=== PATIENT | male | born 1985 | race Caucasian/White ===

== ENCOUNTER 2019-07-19 16:57 | Observation (INO) | payer OTHER, SELFPAY ==
[2019-07-19] VITALS (9 sets, daily range): BP systolic 144–175; BP diastolic 81–126; PULSE 67–82; RESP 14–22; TEMP 36.6; O2SAT 95–98; BMI 38.0
--- NOTE | 2019-07-19 17:14 | ED_ITS ---
Entered by Angy Myers, acting as scribe for Chris Rivera MD, [facility] HPI - Chest Pain General: Chief Complaint: Chest Pain Stated Complaint: weakness after chest pain/SOB Time Seen by Provider: 07/19/19 17:14 Source: patient and RN notes reviewed Mode of arrival: ambulatory Limitations: no limitations History of Present Illness: HPI narrative: 34 yo male presents to ED with complaints of chest pain and shortness of breath. He states he had been cutting wood and when he began stacking the wood he began having R sided chest pain, shortness of breath, sweating and dizziness. This occurred at approximately 1600 today. He tried drinking water and sat down to catch his breath but the shortness of breath did not go away. He said the chest pain lasted about 15 minutes and the pain was minimal. He has no risk factors, only high blood pressure and no family history. The pain is now resolved but he said it feels like something is tickling in his chest and he feels worn out. He did chew a regular strength aspirin prior to arrival. MD complaint: chest pain Pertinent past history: other (HTN) Onset (ago): hour(s) (1.5 (1600)) Timing of current episode: episodic and now resolved Prior episodes: No Onset: during exertion (cutting and stacking wood) Pain location: right chest Pain radiation: none Severity: mild Quality: sharp Relieving factors: rest and other (aspirin) Exacerbating factors: exertion Context: other (exertion) Associated symptoms: Reports dyspnea; Deny abdominal pain, fever(s), nausea, palpitations or vomiting Treatment prior to arrival: aspirin Risk Factors: Coronary artery disease risk factors: none Thoracic aortic dissection risk factors: none Review of Systems General: Reports: 10 or more systems reviewed and unremarkable except in HPI and below Const: Denies: fever, chills or body aches Eyes: Reports: blind spots; Denies: change in vision or blurry vision ENMT: Denies: throat pain, enlarged tonsils, painful swallowing, hoarseness, mouth pain or swelling of lips/tongue Card: Reports: chest pain; Denies: palpitations, irregular heart rhythm, edema or swelling of feet/ankles Resp: Reports: shortness of breath GI: Denies: abdominal pain, nausea or vomiting : Denies: flank pain, painful urination, urinary frequency, urinary urgency or urinary hesitancy Musc: Denies: neck pain, back pain or extremity swelling Skin/Breast: Denies: rash, itching or redness Neuro: Denies: headache, numbness in extremities or weakness in extremities Endo: Denies: excessive urination, excessive thirst or tired all the time PFS ED PFSH: Medical History (Updated 07/19/19 @ 20:25 by Chris Rivera MD, [facility]) Hypertension Social History Smoking and tobacco status: current every day smoker Physical Exam Const: COMMON NORMALS: no apparent distress, average body habitus, oriented x3, no limitations, healthy appearing, alert and well nourished HENMT: COMMON NORMALS: normocephalic, head/scalp atraumatic and moist oral mucous membranes HEAD & SCALP: normocephalic and atraumatic Eye: COMMON NORMALS: PERRL, EOMs intact bilaterally, conjunctivae normal and no scleral icterus CONJUNCTIVA: Yes conjunctivae normal PUPIL: Yes PERRL Neck/C-Spine: COMMON NORMALS: full ROM, supple, no meningeal signs, no JVD and no carotid bruits Chest: COMMONS NORMALS: inspection of chest normal and palpation of chest normal Resp: COMMON NORMALS: normal respiratory effort, no retractions, no use of accessory muscles, clear to auscultation bilaterally and percussion normal AUSCULTATION: clear to auscultation bilaterally PERCUSSION: percussion normal Cardio: COMMON NORMALS: no JVD, regular rate, regular rhythm, S1 normal heart sound, S2 normal heart sound, no gallops, no clicks, no murmurs, no rub and peripheral pulses 2+ throughout RATE: regular rate RHYTHM: regular rhythm HEART SOUNDS: S1 normal and S2 normal PERIPHERAL PULSES: pulses 2+ throughout GI: COMMON NORMALS: normal to inspection, nondistended, normoactive bowel sounds, soft to palpation, non-tender, no hepatosplenomegaly, no masses and no bruits PALPATION: Yes soft and Yes no hepatosplenomegaly : COMMON NORMALS: Yes no CVA tenderness BLADDER/KIDNEY EXAM: Yes no CVA tenderness Back/Pelvis: COMMON NORMALS: no CVA tenderness Extremity: COMMON NORMALS: normal to inspection, full ROM, normal capillary refill, no calf tenderness and no pedal edema Neuro: COMMON NORMALS: oriented x3 SENSORIUM/ORIENTATION: Yes alert MENINGEAL SIGNS: Yes no meningeal signs Skin: COMMON NORMALS: no rashes or lesions noted, no wounds, skin turgor normal, no jaundice, no petechiae and no mottling GENERAL SKIN EXAM: no rashes or lesions noted and turgor normal Course Reevaluation(s): Reevaluation #1: Discussed his lab and imaging findings with him. Negative troponin x2. Negative CTA. I think he may have just pulled a muscle in his chest when cutting wood. We will discharge him home with no new orders. He voiced understanding and is in agreement with the plan Time: 20:20 Vital Signs: Vital signs: Vital Signs Temperature 98 F 07/19/19 17:04 Pulse Rate 82 07/19/19 19:49 Respiratory Rate 16 07/19/19 19:49 Blood Pressure 151/99 07/19/19 19:49 Pulse Oximetry 95 07/19/19 19:49 MDM - Chest Pain MDM Narrative: Medical decision making narrative: Patient who presented to the emergency department with complaints of chest pain after cutting wood all day. He had negative troponin x2. D-dimer was elevated but CTA negative. He is discharged home with no new orders. He is to follow-up with his primary care provider within 3 days. Medical Records: Attestation: I reviewed the patient's medical records. Lab Data: Attestation: I reviewed the patient's lab results. Labs: Lab Results 07/19/19 07/19/19 07/19/19 Range/Units 17:32 17:32 17:32 WBC 7.7 (4.0-10.0) 10^3/ uL RBC 5.06 (4.1-5.3) 10^6/u L Hgb 15.5 (11.7-16.6) g/dL Hct 45.3 (42.0-52.0) % MCV 89.5 (80-94) fL MCH 30.6 (28.0-34.0) pg MCHC 34.2 (30.0-36.0) g/dL RDW 11.6 L (12.1-15.1) % Plt Count 297 (130-400) 10^3/c mm MPV 8.8 (7.4-10.4) fL Neut % (Auto) 67.9 % Lymph % (Auto) 19.8 % [place] % (Auto) 9.8 % Eos % (Auto) 1.6 % Baso % (Auto) 0.6 % Neut # (Auto) 5.2 (1.8-7.7) 10^3/u L Lymph # (Auto) 1.5 (0.8-4.8) 10^3/u L [place] # (Auto) 0.8 (0.2-0.9) 10^3/u L Eos # (Auto) 0.1 (0.0-0.8) 10^3/u L Baso # (Auto) 0.1 (0.0-0.1) 10^3/u L Nucleated RBC % (a uto) 0 % Nucleated RBCs # 0.0 /100WBC PT 12.50 (10.5-13.3) SECO NDS INR 0.90 (0.8-1.2) D-Dimer 1.61 H (0-0.59) ug/mIFE U Sodium 137 (136-145) mmol/L Potassium 3.8 (3.5-5.1) mmol/L Chloride 100 (98-107) mmol/L Carbon Dioxide 22 (22-29) mmol/L Anion Gap 18.8 (5-19) BUN 15 (6-20) mg/dL Creatinine 0.7 (0.7-1.2) mg/dL GFR Calculation 129.9 (90-130) mL/min Glucose 103 (65-115) mg/dL Calcium 9.5 (8.5-10.5) mg/dL Total Bilirubin 0.2 (0.15-1.2) mg/dL AST 24 (0-40) U/L ALT 31 (0-41) U/L Alkaline Phosphata se 59 (40-130) IU/L Creatine Kinase 88 (39-308) U/L Troponin T Baselin e (0-15) ng/mL Troponin T 120 Min [place] (0-15) ng/mL Delta Troponin T (0-10) ABS# Total Protein 8.0 (6.6-8.7) g/dL Albumin 4.9 (3.5-5.2) g/dL Globulin 3.1 (1.3-4.6) g/dL 02/16/20 02/16/20 Range/Units 17:32 19:31 WBC (4.0-10.0) 10^3/ uL RBC (4.1-5.3) 10^6/u L Hgb (11.7-16.6) g/dL Hct (42.0-52.0) % MCV (80-94) fL MCH (28.0-34.0) pg MCHC (30.0-36.0) g/dL RDW (12.1-15.1) % Plt Count (130-400) 10^3/c mm MPV (7.4-10.4) fL Neut % (Auto) % Lymph % (Auto) % [place] % (Auto) % Eos % (Auto) % Baso % (Auto) % Neut # (Auto) (1.8-7.7) 10^3/u L Lymph # (Auto) (0.8-4.8) 10^3/u L [place] # (Auto) (0.2-0.9) 10^3/u L Eos # (Auto) (0.0-0.8) 10^3/u L Baso # (Auto) (0.0-0.1) 10^3/u L Nucleated RBC % (a uto) % Nucleated RBCs # /100WBC PT (10.5-13.3) SECO NDS INR (0.8-1.2) D-Dimer (0-0.59) ug/mIFE U Sodium (136-145) mmol/L Potassium (3.5-5.1) mmol/L Chloride (98-107) mmol/L Carbon Dioxide (22-29) mmol/L Anion Gap (5-19) BUN (6-20) mg/dL Creatinine (0.7-1.2) mg/dL GFR Calculation (90-130) mL/min Glucose (65-115) mg/dL Calcium (8.5-10.5) mg/dL Total Bilirubin (0.15-1.2) mg/dL AST (0-40) U/L ALT (0-41) U/L Alkaline Phosphata se (40-130) IU/L Creatine Kinase (39-308) U/L Troponin T Baselin e 6 (0-15) ng/mL Troponin T 120 Min [place] 6.00 (0-15) ng/mL Delta Troponin T 0 (0-10) ABS# Total Protein (6.6-8.7) g/dL Albumin (3.5-5.2) g/dL Globulin (1.3-4.6) g/dL EKG Data^: EKG 1: Computer generated interpretation: [address] [address] Electrocardiograph Report Draft Patient: Juan Royal #: [id number] : 1985Acct#:[id number] Age/Sex: 34 / MADM Date: 07/19/19 Loc: ERRoom/Bed: Attending Dr: Ordering Provider/Ordering MD: Chris Rivera MD, [facility] Date of Service: 07/19/19 Procedure(s): ECG 12 lead EKG Accession Number(s): [id number] Report Number: [id number] Rate: 76 P: 9 OR: 150 QRS: -24 QRSD: 106 T: -13 QT: 330 QTc: 371 SINUS RHYTHM INCOMPLETE RIGHT BUNDLE BRANCH BLOCK [90+ ms QRS DURATION, TERMINAL R IN V1/V2, 40+ 40+ 40+ 40+ 40+ 40+ ms S IN I/aVL/V4/V5/V6] POSSIBLE ANTERIOR MYOCARDIAL INFARCTION [30 ms Q WAVE IN V3/V4, OR R < 0.2 mV IN V4] IN V4] V4] V4], OF INDETERMINATE AGE INFERIOR MYOCARDIAL INFARCTION [40+ ms Q WAVE AND/OR ST/T ABNORMALITY IN II/a II/aVF], OR OR PROBABLY OLD No previous ECG available for comparison [email or web address] [id number] Dictated By:INTERFACE,USER Signed By:Signed Date/Time: DD/ 01 EKG 2: Attestation: I personally reviewed and interpreted this EKG as follows: EKG interpretation date: 07/19/19 EKG interpretation time: 19:19 Prior EKG tracings: available for review Interpretation: No changes from earlier today. Discharge Plan Discharge Patient Disposition: Home, Self-Care Clinical Impression: Chest pain Qualifiers: Chest pain type: other chest pain Qualified Code(s): R07.89 - Other chest pain Condition: Stable Prescriptions: Continued Coreg 25 mg Tablet 25 mg PO BID RF: 0 losartan-hydrochlorothiazide 100-12.5 mg Tablet 1 tab PO DAILY RF: 0 Multiple Vitamins Tablet 1 tab PO DAILY RF: 0 Discharge Orders: Discharge Order (Routine); Ordered 07/19/19 Ordered By: Chris Rivera Referrals: Gayla Preciado FNP [Primary Care Provider] - 1-3 days Patient Instructions: Chest Pain (ED) Activity Restrictions/Additional Instructions: Return for any new or worsening symptoms. Follow-up with your primary care provider within 3 days. Continue home medications as prescribed. Coding Level of Care Code ED Bundle Clerk for Chg Fwd Exam Comprehensive The documentation recorded by the Louis delong Valerie R, accurately reflects the service I personally performed and the decisions made by Miguel greenwood Adegoke I, MD, [facility] Jul 19, 2019 16:57
--- NOTE | 2019-07-19 17:28 | ECG_ITS ---
Measurements Intervals [place] Rate: 76 P: 9 NV: 150 QRS: -24 QRSD: 106 T: -13 QT: 330 QTc: 371 SINUS RHYTHM INCOMPLETE RIGHT BUNDLE BRANCH BLOCK [90+ ms QRS DURATION, TERMINAL R IN V1/V2, 40+ ms S IN I/aVL/V4/V5/V6] POSSIBLE ANTERIOR MYOCARDIAL INFARCTION [30 ms Q WAVE IN V3/V4, OR R < 0.2 mV IN V4], OF INDETERMINATE AGE INFERIOR MYOCARDIAL INFARCTION [40+ ms Q WAVE AND/OR ST/T ABNORMALITY IN II/a II/aVF], PROBABLY OLD No previous ECG available for comparison Electronically Signed On 07-20-2019 11:16:33 [employer] by Simon Chance M.D. [id number]
--- NOTE | 2019-07-19 17:29 | XR_ITS ---
WS: [id number] XR chest 2V* [id number] REASON FOR EXAM: chest pain FINDINGS: The cardiac silhouette is unremarkable. There is granulomas seen in both perihilar areas. The lung braun are well aerated. No pneumonia, pleural effusion, pulmonary edema, no pneumothorax. No osseous abnormalities. The hilum and apices are normal. XR/XR chest 2V* 29708 IMPRESSION: No active cardiopulmonary changes.
[2019-07-19 17:45] LABS: Basophils # 0.1 10^3/uL (0.0-0.1); Basophils % 0.6 %; Eosinophils # 0.1 10^3/uL (0.0-0.8); Eosinophils % 1.6 %; Hematocrit 45.3 % (42.0-52.0); Hemoglobin 15.5 g/dL (11.7-16.6); Lymphocytes # 1.5 10^3/uL (0.8-4.8); Lymphocytes % 19.8 %; Mean Corpuscular HGB Conc 34.2 g/dL (30.0-36.0); Mean Corpuscular Hemoglobin 30.6 pg (28.0-34.0); Mean Corpuscular Volume 89.5 fL (80-94); Mean Platelet Volume 8.8 fL (7.4-10.4); Monocytes # 0.8 10^3/uL (0.2-0.9); Monocytes % 9.8 %; Neutrophils # 5.2 10^3/uL (1.8-7.7); Neutrophils % 67.9 %; Nucleated Red Blood Cells % 0 %; Platelet Count 297 10^3/cmm (130-400); Red Blood Count 5.06 10^6/uL (4.1-5.3); Red Cell Distribution Width 11.6 % (12.1-15.1); White Blood Count 7.7 10^3/uL (4.0-10.0)
[2019-07-19 17:57] LABS: D Dimer 1.61 ug/mIFEU (0-0.59)
[2019-07-19 18:01] LABS: Alanine Aminotransferase 31 U/L (0-41); Albumin Level 4.9 g/dL (3.5-5.2); Alkaline Phosphatase 59 IU/L (40-130); Anion Gap 18.8 (5-19); Aspartate Amino Transferase 24 U/L (0-40); Blood Urea Nitrogen 15 mg/dL (6-20); Calcium 9.5 mg/dL (8.5-10.5); Carbon Dioxide 22 mmol/L (22-29); Chloride 100 mmol/L (98-107); Creatine Phosphokinase 88 U/L (39-308); Globulin 3.1 g/dL (1.3-4.6); Glomerular Filtration Rate 129.9 mL/min (90-130); Glucose 103 mg/dL (65-115); Potassium 3.8 mmol/L (3.5-5.1); Sodium 137 mmol/L (136-145); Total Bilirubin 0.2 mg/dL (0.15-1.2)
[2019-07-19 18:03] LABS: Troponin(5th) Baseline 6 ng/mL (0-15)
--- NOTE | 2019-07-19 18:28 | CTR_ITS ---
PROCEDURE INFORMATION: Exam: CT Angiography Chest With Contrast Exam date and time: 07/19/2019 6:32 PM Age: 34 years old Clinical indication: Shortness of breath and other: Elevated ddimer; Additional info: Chest pain, SOB, elevated d-dimer TECHNIQUE: Imaging protocol: Computed tomographic angiography of the chest with intravenous contrast. 3D rendering: MIP and/or 3D reconstructed images were created by the technologist. Total DLP: 1285.15 mGy-cm Radiation optimization: All CT scans at this facility use at least one of these dose optimization techniques: automated exposure control; mA and/or kV adjustment per patient size (includes targeted exams where dose is matched to clinical indication); or iterative reconstruction. Contrast material: OMNIPAQUE 350; Contrast volume: 95 ml; Contrast route: IV; COMPARISON: CR XR chest 2V* [id number] 07/19/2019 6:19 PM FINDINGS: Pulmonary arteries: Normal. No pulmonary emboli. Aorta: Unremarkable. No aortic aneurysm. No aortic dissection. Lungs: Unremarkable. No consolidation. No masses. Pleural space: Unremarkable. No pneumothorax. No pleural effusion. Heart: Unremarkable. No cardiomegaly. No pericardial effusion. Lymph nodes: Unremarkable. No enlarged lymph nodes. Bones/joints: Unremarkable. No acute fracture. Soft tissues: Unremarkable. CT/CT angio chest PE protcl [id number] IMPRESSION: No acute findings. Radiation Dose CTDIVOL = (mGy): DLP = 1285.15 (mGy-cm)
[2019-07-19] MEDS: iohexol 350 mg/mL 100 mL Btl IV (18:33)
--- NOTE | 2019-07-19 19:02 | PC.NURSE ---
Report received from BE Reynolds and care transferred to BE Zaldivar
--- NOTE | 2019-07-19 19:08 | PC.NURSE ---
Patient to CT
--- NOTE | 2019-07-19 19:28 | ECG_ITS ---
Measurements Intervals [place] Rate: 70 P: 39 AK: 170 QRS: -15 QRSD: 118 T: 3 QT: 363 QTc: 393 SINUS RHYTHM LOW QRS VOLTAGE IN PRECORDIAL LEADS [QRS DEFLECTION < 1.0 mV IN CHEST LEADS] INCOMPLETE RIGHT BUNDLE BRANCH BLOCK [90+ ms QRS DURATION, TERMINAL R IN V1/V2, 40+ ms S IN I/aVL/V4/V5/V6] POSSIBLE ANTERIOR MYOCARDIAL INFARCTION , OF INDETERMINATE AGE [30 ms Q WAVE IN V3 V3/V4, OR R < 0.2 mV IN V4] No previous ECG available for comparison Electronically Signed On 07-20-2019 11:24:30 LEAN SPECIALIST by Simon Chance M.D. [id number]
[2019-07-19 19:54] LABS: Troponin 5 2HR Delta 0 ABS# (0-10)
[2019-07-19] MEDS: labetalol 5 mg/mL SDV 20mL 10 MG IVP (21:08)
--- NOTE | 2019-07-19 21:12 | W.ED.CHESTPA ---
HPI - Chest Pain General: Chief Complaint: Chest Pain Stated Complaint: weakness after chest pain/SOB Time Seen by Provider: 07/19/19 17:14 Source: patient and RN notes reviewed Mode of arrival: ambulatory Limitations: no limitations History of Present Illness: Pain location: right chest Quality: sharp Relieving factors: rest and other (aspirin) Exacerbating factors: exertion Context: other (exertion) [facility] ED PFSH: Medical History (Updated 07/19/19 @ 20:25 by Chris Rivera MD, [facility] Hypertension Social History Smoking and tobacco status: current every day smoker Course Vital Signs: Vital signs: Vital Signs Temperature 98 F 07/19/19 17:04 Pulse Rate 80 07/19/19 21:11 Respiratory Rate 16 07/19/19 21:11 Blood Pressure 159/126 07/19/19 21:11 Pulse Oximetry 97 07/19/19 21:11 MDM - Chest Pain Lab Data: Labs: Lab Results 07/19/19 07/19/19 07/19/19 Range/Units 17:32 17:32 17:32 WBC 7.7 (4.0-10.0) 10^3/ uL RBC 5.06 (4.1-5.3) 10^6/u L Hgb 15.5 (11.7-16.6) g/dL Hct 45.3 (42.0-52.0) % MCV 89.5 (80-94) fL MCH 30.6 (28.0-34.0) pg MCHC 34.2 (30.0-36.0) g/dL RDW 11.6 L (12.1-15.1) % Plt Count 297 (130-400) 10^3/c mm MPV 8.8 (7.4-10.4) fL Neut % (Auto) 67.9 % Lymph % (Auto) 19.8 % [place] % (Auto) 9.8 % Eos % (Auto) 1.6 % Baso % (Auto) 0.6 % Neut # (Auto) 5.2 (1.8-7.7) 10^3/u L Lymph # (Auto) 1.5 (0.8-4.8) 10^3/u L [place] # (Auto) 0.8 (0.2-0.9) 10^3/u L Eos # (Auto) 0.1 (0.0-0.8) 10^3/u L Baso # (Auto) 0.1 (0.0-0.1) 10^3/u L Nucleated RBC % (a uto) 0 % Nucleated RBCs # 0.0 /100WBC PT 12.50 (10.5-13.3) SECO NDS INR 0.90 (0.8-1.2) D-Dimer 1.61 H (0-0.59) ug/mIFE U Sodium 137 (136-145) mmol/L Potassium 3.8 (3.5-5.1) mmol/L Chloride 100 (98-107) mmol/L Carbon Dioxide 22 (22-29) mmol/L Anion Gap 18.8 (5-19) BUN 15 (6-20) mg/dL Creatinine 0.7 (0.7-1.2) mg/dL GFR Calculation 129.9 (90-130) mL/min Glucose 103 (65-115) mg/dL Calcium 9.5 (8.5-10.5) mg/dL Total Bilirubin 0.2 (0.15-1.2) mg/dL AST 24 (0-40) U/L ALT 31 (0-41) U/L Alkaline Phosphata se 59 (40-130) IU/L Creatine Kinase 88 (39-308) U/L Troponin T Baselin e (0-15) ng/mL Troponin T 120 Min [place] (0-15) ng/mL Delta Troponin T (0-10) ABS# Total Protein 8.0 (6.6-8.7) g/dL Albumin 4.9 (3.5-5.2) g/dL Globulin 3.1 (1.3-4.6) g/dL 07/19/19 07/19/19 Range/Units 17:32 19:31 WBC (4.0-10.0) 10^3/ uL RBC (4.1-5.3) 10^6/u L Hgb (11.7-16.6) g/dL Hct (42.0-52.0) % MCV (80-94) fL MCH (28.0-34.0) pg MCHC (30.0-36.0) g/dL RDW (12.1-15.1) % Plt Count (130-400) 10^3/c mm MPV (7.4-10.4) fL Neut % (Auto) % Lymph % (Auto) % [place] % (Auto) % Eos % (Auto) % Baso % (Auto) % Neut # (Auto) (1.8-7.7) 10^3/u L Lymph # (Auto) (0.8-4.8) 10^3/u L [place] # (Auto) (0.2-0.9) 10^3/u L Eos # (Auto) (0.0-0.8) 10^3/u L Baso # (Auto) (0.0-0.1) 10^3/u L Nucleated RBC % (a uto) % Nucleated RBCs # /100WBC PT (10.5-13.3) SECO NDS INR (0.8-1.2) D-Dimer (0-0.59) ug/mIFE U Sodium (136-145) mmol/L Potassium (3.5-5.1) mmol/L Chloride (98-107) mmol/L Carbon Dioxide (22-29) mmol/L Anion Gap (5-19) BUN (6-20) mg/dL Creatinine (0.7-1.2) mg/dL GFR Calculation (90-130) mL/min Glucose (65-115) mg/dL Calcium (8.5-10.5) mg/dL Total Bilirubin (0.15-1.2) mg/dL AST (0-40) U/L ALT (0-41) U/L Alkaline Phosphata se (40-130) IU/L Creatine Kinase (39-308) U/L Troponin T Baselin e 6 (0-15) ng/mL Troponin T 120 Min [place] 6.00 (0-15) ng/mL Delta Troponin T 0 (0-10) ABS# Total Protein (6.6-8.7) g/dL Albumin (3.5-5.2) g/dL Globulin (1.3-4.6) g/dL Imaging Data^: CTA Chest: Radiologist's impression: [address] [address] [address] Scan Report Signed Patient: Juan Royal #: [id number] : 1985Acct#:[id number] Age/Sex: 34 / MADM Date: 07/19/19 Loc: ERRoom/Bed: Attending Dr: Ordering Provider/Ordering MD: Chris Rivera MD, DEREK Date of Service: 07/19/19 Procedure(s): CT angio chest PE protcl [id number] Accession Number(s): [id number] Report Number: [id number] PROCEDURE INFORMATION: Exam: CT Angiography Chest With Contrast Exam date and time: 07/19/2019 6:32 PM Age: 34 years old Clinical indication: Shortness of breath and other: Elevated ddimer; Additional info: Chest pain, SOB, elevated d-dimer TECHNIQUE: Imaging protocol: Computed tomographic angiography of the chest with intravenous contrast. 3D rendering: MIP and/or 3D reconstructed images were created by the technologist. Total DLP: 1285.15 mGy-cm Radiation optimization: All CT scans at this facility use at least one of these dose optimization techniques: automated exposure control; mA and/or kV adjustment per patient size (includes targeted exams where dose is matched to clinical indication); or iterative reconstruction. Contrast material: OMNIPAQUE 350; Contrast volume: 95 ml; Contrast route: IV; COMPARISON: CR XR chest 2V* [id number] 07/19/2019 6:19 PM FINDINGS: Pulmonary arteries: Normal. No pulmonary emboli. Aorta: Unremarkable. No aortic aneurysm. No aortic dissection. Lungs: Unremarkable. No consolidation. No masses. Pleural space: Unremarkable. No pneumothorax. No pleural effusion. Heart: Unremarkable. No cardiomegaly. No pericardial effusion. Lymph nodes: Unremarkable. No enlarged lymph nodes. Bones/joints: Unremarkable. No acute fracture. Soft tissues: Unremarkable. CT/CT angio chest PE protcl [id number] IMPRESSION: No acute findings. Radiation Dose CTDIVOL = (mGy): DLP = 1285.15 (mGy-cm) Dictated By:Rachael Patel Signed By:Rocael Patel Date/Time:07/19/191937 DD/ Discharge Plan Discharge Patient Disposition: Home, Self-Care Clinical Impression: Chest pain Qualifiers: Chest pain type: other chest pain Qualified Code(s): R07.89 - Other chest pain Condition: Stable Prescriptions: Continued Coreg 25 mg Tablet 25 mg PO BID RF: 0 losartan-hydrochlorothiazide 100-12.5 mg Tablet 1 tab PO DAILY RF: 0 Multiple Vitamins Tablet 1 tab PO DAILY RF: 0 Discharge Orders: Discharge Order (Routine); Ordered 07/19/19 Ordered By: Chris Rivera Referrals: Gayla Preciado FNP [Primary Care Provider] - 1-3 days Patient Instructions: Chest Pain (ED) Activity Restrictions/Additional Instructions: Return for any new or worsening symptoms. Follow-up with your primary care provider within 3 days. Continue home medications as prescribed. Coding Level of Care Code ED Paste Maker for Natalie Solitario
--- NOTE | 2019-07-19 22:29 | P.HP_ITS ---
Providers/Chief Complaint Admitting Physician: Fernandez Esquivel MD Primary Care Provider: MEGHAN Killian Chief Complaint: weakness after chest pain/SOB History of Present Illness Juan Royal is a 34 year old male with a past medical history of hypertension, GERD who works as a [employer] and [employer] [facility] [employer] who presents to the emergency room due to complaints of right-sided chest pain. Patient states that today, he was working chopping wood, when he was stacking the wood, he started to notice right-sided chest heaviness, starting at the right sternum, radiating to almost the right shoulder, described as a chest heaviness, associated with difficulty catching his breath, lightheadedness, dizziness, diaphoresis, no nausea, no vomiting, no right hand numbness or tingling, no back pain, no neck pain, lasted about 5 minutes, he sat down, and the pain abated. Patient is never had chest pain like this in the past, no personal history of CAD, no history of CHF, no significant family history of CAD. In the emergency room patient had a relatively unremarkable work-up, including a negative CT angios, however patient continues to have complaints of trouble catching his breath, and pleuritic-like pain with taking a deep breath in., No fevers, no chills, no nausea, no vomiting, has a mild cough, no URI symptoms, does have postnasal drip, no recent illness, no sick recent sick contact. Review of Systems Const: Denies: fever, chills, fatigue or malaise Eyes: Denies: change in vision or blurry vision ENMT: Denies: nasal congestion Card: Reports: chest pain and lightheadedness; Denies: palpitations Resp: Reports: shortness of breath; Denies: productive cough, non-productive cough or wheezing GI: Denies: abdominal pain, nausea, vomiting, vomiting blood, diarrhea, constipation, blood in stool or black tarry stool : Denies: flank pain, difficulty urinating, painful urination or urinary frequency Musc: Denies: neck pain or back pain Skin/Breast: Denies: rash Neuro: Denies: headache, dizziness or vertigo Psych: Denies: anxiety or depression Endo: Denies: excessive urination or excessive thirst Medications/Allergies Home Medications Medication Instructions Recorded Confirmed Last Taken Type Coreg 25 mg PO BID 07/19/19 07/19/19 07/19/19 History Multiple Vitamins 1 tab PO DAILY 07/19/19 07/19/19 07/19/19 History losartan-hydrochlorothiazide 1 tab PO DAILY 07/19/19 07/19/19 07/19/19 History Allergies Allergy/AdvReac Type Severity Reaction Status Date / Time amoxicillin [From Augmentin] Allergy ALGY-Rash Verified 07/19/19 17:08 clavulanic acid Allergy ALGY-Rash Verified 07/19/19 17:08 [From Augmentin] Penicillins Allergy ALGY-Rash Verified 07/19/19 17:08 PFSH Acute PFSH: Medical History (Updated 07/19/19 @ 20:25 by Chris Rivera MD, [facility]) Hypertension Surgical History (Updated 07/19/19 @ 22:33 by Fernandez Esquivel MD) S/P right knee arthroscopy Social History (Updated 07/19/19 @ 22:33 by Fernandez Esquivel MD) Smoking and tobacco status: current every day smoker Alcohol intake: current Substance/Drug Use: never Vitals/I&O/Wt Last Vital Signs Temp 98 F 07/19/19 17:04 Pulse 74 07/19/19 21:33 Resp 16 07/19/19 22:02 BP 156/110 07/19/19 22:02 Pulse Ox 96 07/19/19 21:33 Weight last 48 hrs Weight 113.398 kg Physical Exam Const: COMMON NORMALS: no apparent distress and oriented x3 GENERAL APPEARANCE: cooperative and comfortable HENMT: COMMON NORMALS: normocephalic HEAD & SCALP: normocephalic Eye: COMMON NORMALS: PERRL, EOMs intact bilaterally and no papilledema GENERAL EYE: normal appearance of both eyes PUPIL: Yes PERRL DIRECT OPHTHALMOSCOPY: Yes no papilledema Neck/C-Spine: COMMON NORMALS: full ROM, no lymphadenopathy, no JVD and thyroid normal THYROID: thyroid normal Lymph: LYMPHATIC: no lymphadenopathy noted Resp: COMMON NORMALS: normal respiratory effort, no retractions, no use of accessory muscles and clear to auscultation bilaterally AUSCULTATION: clear to auscultation bilaterally Cardio: COMMON NORMALS: no JVD, regular rate, regular rhythm, S1 normal heart sound, S2 normal heart sound, no gallops, no clicks and no murmurs RATE: regular rate RHYTHM: regular rhythm HEART SOUNDS: S1 normal and S2 normal GI: COMMON NORMALS: normal to inspection, nondistended, normoactive bowel sounds, soft to palpation and no hepatosplenomegaly PALPATION: Yes soft, Yes tender (Epigastrium) Details: RUQ and Yes no hepatosplenomegaly Extremity: COMMON NORMALS: normal to inspection, full ROM and no pedal edema Neuro: COMMON NORMALS: oriented x3, CN's II-XII intact bilaterally, moves all extremities and no focal motor deficits Psych: COMMON NORMALS: mental status grossly normal, thought process normal and cooperative THOUGHT PROCESS: normal thought process Data : 07/19/19 17:32 07/19/19 17:32 A&P Assessment and plan (1) Chest pain: -Patient's troponins have been unremarkable, patient's EKG has no significant ST-T wave changes, has a right bundle branch block, CT angios was unremarkable -Could this be musculoskeletal? I did a thorough musculoskeletal exam, of the right shoulder, and it was unremarkable -Patient did have significant right costochondral and sternal tenderness, history sounds a lot like costochondritis -patient did have right upper quadrant tenderness, with some epigastric tenderness Plan: -Trend troponins, serial EKGs, telemetry monitoring, monitor for chest pain -We will get inflammatory markers, pro-David, CRP, ESR -Toradol for costochondritis -N.p.o. midnight, for US of galbladder in a.m. 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
[2019-07-19] MEDS: sodium chloride 0.9% 1,000 ML 100 ML IV (22:31)
[2019-07-19] MEDS: lidocaine 2% viscous 15 ML, aluminum-mag hydrox-simethicon 30 ML, sucralfate oral liq 1 GM PO (23:03)
[2019-07-19] MEDS: enoxaparin 40 mg/0.4 mL Syringe SUBCUT (23:04)
[2019-07-19] MEDS: pantoprazole DR 40 mg Tablet PO (23:04)
[2019-07-19 23:16] LABS: Lipase 27 U/L (13-60)
--- NOTE | 2019-07-19 23:28 | ECG_ITS ---
Measurements Intervals [place] Rate: 60 P: 34 AL: 173 QRS: -4 QRSD: 123 T: 12 QT: 399 QTc: 399 SINUS RHYTHM POSSIBLE RIGHT VENTRICULAR CONDUCTION DELAY [RSR (QR) IN V1/V2] No previous ECG available for comparison Electronically Signed On 07-20-2019 11:25:19 TRACTOR OPERATOR by Simon Chance M.D. [email or web address]
[2019-07-19 23:55] LABS: Procalcitonin 0.04 ng/mL (0-0.5)
[2019-07-20] VITALS (8 sets, daily range): BP systolic 117–134; BP diastolic 74–89; PULSE 62–71; RESP 15–20; TEMP 36.3–36.7; O2SAT 95–98
[2019-07-20 00:21] LABS: Erythrocyte Sedimentation Rate 5 mm/hr (0-10)
[2019-07-20 00:21] LABS: Troponin 5 6HR Delta 0 ng/L (0-12)
[2019-07-20 06:30] LABS: Basophils % 0.6 %; Eosinophils # 0.1 10^3/uL (0.0-0.8); Eosinophils % 1.7 %; Hematocrit 43.5 % (42.0-52.0); Hemoglobin 14.8 g/dL (11.7-16.6); Lymphocytes # 1.9 10^3/uL (0.8-4.8); Lymphocytes % 26.8 %; Mean Corpuscular Hemoglobin 31.9 pg (28.0-34.0); Mean Corpuscular Volume 93.8 fL (80-94); Mean Platelet Volume 9.1 fL (7.4-10.4); Monocytes # 0.7 10^3/uL (0.2-0.9); Monocytes % 9.4 %; Neutrophils # 4.3 10^3/uL (1.8-7.7); Neutrophils % 61.2 %; Nucleated Red Blood Cells % 0 %; Platelet Count 265 10^3/cmm (130-400); Red Blood Count 4.64 10^6/uL (4.1-5.3); Red Cell Distribution Width 11.7 % (12.1-15.1); White Blood Count 6.9 10^3/uL (4.0-10.0)
[2019-07-20 06:49] LABS: Alanine Aminotransferase 23 U/L (0-41); Alkaline Phosphatase 50 IU/L (40-130); Anion Gap 16.5 (5-19); Aspartate Amino Transferase 20 U/L (0-40); Blood Urea Nitrogen 11 mg/dL (6-20); Calcium 9.3 mg/dL (8.5-10.5); Carbon Dioxide 24 mmol/L (22-29); Chloride 101 mmol/L (98-107); Globulin 3.2 g/dL (1.3-4.6); Glomerular Filtration Rate 111.3 mL/min (90-130); Glucose 111 mg/dL (65-115); Potassium 3.5 mmol/L (3.5-5.1); Sodium 138 mmol/L (136-145); Total Bilirubin 0.4 mg/dL (0.15-1.2); Total Protein 7.2 g/dL (6.6-8.7)
--- NOTE | 2019-07-20 07:00 | US_ITS ---
WS: [id number] ABDOMINAL ULTRASOUND REASON FOR EXAM: ruq pain TECHNIQUE: Grayscale and Doppler ultrasound examination of the abdomen. FINDINGS: Pancreas: Within normal limits. Abdominal aorta and IVC: Within normal limits. Liver: Liver measures 19.3 cm in length. Fatty infiltration. Gallbladder: Gallbladder wall thickness measures 2.7 mm. Biliary sludge.Common bile duct measured 0.5 7 cm Left kidney: Left kidney measures 11.3 cm x 7.2 cm x 7.7 cm. Right kidney: Right kidney measures 11.1 cm x 6.5 cm x 5.6 cm. No hydronephrosis or stones. Spleen: Spleen measures 11.0 cm. US/US abdomen complete* [id number] IMPRESSION: The gallbladder wall is upper limits of normal with biliary sludge. Fatty infiltration of the liver.
[2019-07-20] MEDS: hydroCHLOROthiazide 25 mg Tablet PO (08:22)
[2019-07-20] MEDS: losartan 50 mg Tablet 100 MG PO (08:23)
[2019-07-20] MEDS: pantoprazole DR 40 mg Tablet PO (08:26)
[2019-07-20] MEDS: multivitamin therapeutic Tablet 1 TAB PO (08:26)
[2019-07-20] MEDS: sodium chloride 0.9% 1,000 ML 100 ML IV (08:26)
[2019-07-20] MEDS: carvedilol 25 mg Tablet PO (08:26)
[2019-07-20 12:06] LABS: Estmated Average Glucose 111; Hemoglobin A1C 5.5 % (4.0-6.0)
--- NOTE | 2019-07-20 12:42 | P.DS_ITS ---
Discharge Providers Date of Admission: 07/19/19 22:01 Date of Discharge: July 20, 2019 Attending Provider at Admission: Fernandez Esquivel MD Attending Provider at Discharge: Jerry Ureña Primary Care Provider: MEGHAN Killian Diagnoses at Discharge Discharge Diagnosis (1) Chest pain: Status: Acute Qualifiers: Chest pain type: other chest pain Qualified Code(s): R07.89 - Other chest pain (2) Hypertension: Status: Acute Reason for Visit Reason for Visit: Reason For Visit: weakness after chest pain/SOB Hospital Course Hospital Course: Pleasant 34-year-old gentleman with history of hypertension, current smoker, although has been cutting down, was observed overnight after pre senting with episode of right-sided chest pain after cutting some wood outdoors, with pleuritic component where he felt he had difficult time catching a deep breath, with mild dizziness even after sitting down. He denies feeling palpitations. There was no syncope. This morning he is feeling much better. There is no residual chest pain or shortness of breath. His troponins have been unremarkable. There has been perhaps slight T wave flattening on EKG, but otherwise no suggestion of acute ischemia. His blood pressure was elevated last night, but is much better this morning. He reports at home it is better than it was yesterday, although may need slightly better control still with blood pressure sometimes running 140s/90s. He does not qualify for statin at this time. I requested A1c to be assessed and discussed with him. CTA done last night was negative. This morning he had right upper quadrant ultrasound with finding of sludge and fatty liver infiltration. This was discussed with him along with recommendation for low-fat diet and abstinence from any alcohol and he verbalized understanding. He was counseled on smoking cessation which we discussed for over 3/2 minutes. He states that he is cut down to a pack in 3-4 days. We discussed referral for education, although he feels at this time that he should be able to quit on his own without any aids. He states that he has tried nicotine gum in the past. Continue to veterans rehabilitation counselor encourage cessation as well as optimize other risk factors for coronary disease. Due to reported dizziness after exertion, although without overt syncope, will assess him by TTE. Given T wave changes, chronic hypertension we will assess him with treadmill stress testing. He has history of knee injury on the right side, although feels you should be able to walk briskly up an incline. He does report history of recurrent heartburn, although is not sure that this contributed to his symptoms. For now we will start him on trial of PPI. He is started on as needed NSAIDs due to concern for possible costochondritis on admission. Should respiratory component of symptoms persist, with exertion outside in the cold which may have served as a trigger for his dyspnea, may benefit from assessment by PFT in the future. Physical Exam Const: COMMON NORMALS: no apparent distress and oriented x3 HENMT: COMMON NORMALS: oropharynx normal Neck/C-Spine: COMMON NORMALS: no JVD Resp: COMMON NORMALS: normal respiratory effort and clear to auscultation bilaterally AUSCULTATION: clear to auscultation bilaterally Cardio: COMMON NORMALS: no JVD, regular rhythm, S1 normal heart sound, S2 normal heart sound and no murmurs RHYTHM: regular rhythm HEART SOUNDS: S1 normal and S2 normal GI: COMMON NORMALS: normal to inspection, nondistended, normoactive bowel sounds, soft to palpation and non-tender PALPATION: Yes soft Extremity: COMMON NORMALS: no joint enlargement and no pedal edema Neuro: COMMON NORMALS: oriented x3 and moves all extremities Skin: COMMON NORMALS: no rashes or lesions noted GENERAL SKIN EXAM: no rashes or lesions noted Discharge Data Data Completed and Pending: Completed Studies During Hospitalization Category Date Time Status CT angio chest PE protcl [id number] Stat Cat Scan 07/19/19 18:28 Completed XR chest 2V* [id number] Stat Exams 07/19/19 17:29 Completed US abdomen comple te* [id number] Routine Ultrasound 07/20/19 07:00 Completed Pending at discharge Category Date Time Status Comprehensive Met abolic Panel AM LA BS Lab 07/21/19 04:00 Ordered Comprehensive Met abolic Panel AM LA BS Lab 07/22/19 04:00 Ordered Labs from last 24 hours 07/20/19 07/20/19 07/20/19 05:31 05:31 05:31 WBC 6.9 RBC 4.64 Hgb 14.8 Hct 43.5 MCV 93.8 MCH 31.9 MCHC 34.0 RDW 11.7 L Plt Count 265 MPV 9.1 Neut % (Auto) 61.2 Lymph % (Auto) 26.8 Coke % (Auto) 9.4 Eos % (Auto) 1.7 Baso % (Auto) 0.6 Neut # (Auto) 4.3 Lymph # (Auto) 1.9 Coke # (Auto) 0.7 Eos # (Auto) 0.1 Baso # (Auto) 0.0 Nucleated RBC % (a uto) 0 Nucleated RBCs # 0.0 ESR PT INR D-Dimer Sodium 138 Potassium 3.5 Chloride 101 Carbon Dioxide 24 Anion Gap 16.5 BUN 11 Creatinine 0.8 GFR Calculation 111.3 Glucose 111 Estimat Average Gl ucose 111 Hemoglobin A1c 5.5 Calcium 9.3 Total Bilirubin 0.4 AST 20 ALT 23 Alkaline Phosphata se 50 Creatine Kinase Troponin I 6 Hour Troponin I Hi Sens Del Troponin T Baselin e Troponin T 120 Min [place] Delta Troponin T C-Reactive Protein Total Protein 7.2 Albumin 4.0 Globulin 3.2 Lipase Procalcitonin 07/19/19 07/19/19 07/19/19 23:38 19:31 17:32 WBC RBC Hgb Hct MCV MCH MCHC RDW Plt Count MPV Neut % (Auto) Lymph % (Auto) Coke % (Auto) Eos % (Auto) Baso % (Auto) Neut # (Auto) Lymph # (Auto) Coke # (Auto) Eos # (Auto) Baso # (Auto) Nucleated RBC % (a uto) Nucleated RBCs # ESR 5 PT INR D-Dimer Sodium Potassium Chloride Carbon Dioxide Anion Gap BUN Creatinine GFR Calculation Glucose Estimat Average Gl ucose Hemoglobin A1c Calcium Total Bilirubin AST ALT Alkaline Phosphata se Creatine Kinase Troponin I 6 Hour 6.00 Troponin I Hi Sens Del 0 Troponin T Baselin e Troponin T 120 Min [place] 6.00 Delta Troponin T 0 C-Reactive Protein Total Protein Albumin Globulin Lipase Procalcitonin 07/19/19 07/19/19 07/19/19 17:32 17:32 17:32 WBC RBC Hgb Hct MCV MCH MCHC RDW Plt Count MPV Neut % (Auto) Lymph % (Auto) Coke % (Auto) Eos % (Auto) Baso % (Auto) Neut # (Auto) Lymph # (Auto) Coke # (Auto) Eos # (Auto) Baso # (Auto) Nucleated RBC % (a uto) Nucleated RBCs # ESR PT INR D-Dimer Sodium 137 Potassium 3.8 Chloride 100 Carbon Dioxide 22 Anion Gap 18.8 BUN 15 Creatinine 0.7 GFR Calculation 129.9 Glucose 103 Estimat Average Gl ucose Hemoglobin A1c Calcium 9.5 Total Bilirubin 0.2 AST 24 ALT 31 Alkaline Phosphata se 59 Creatine Kinase 88 Troponin I 6 Hour Troponin I Hi Sens Del Troponin T Baselin e 6 Troponin T 120 Min [place] Delta Troponin T C-Reactive Protein 1.0 Total Protein 8.0 Albumin 4.9 Globulin 3.1 Lipase 27 Procalcitonin 0.04 07/19/19 07/19/19 17:32 17:32 WBC 7.7 RBC 5.06 Hgb 15.5 Hct 45.3 MCV 89.5 MCH 30.6 MCHC 34.2 RDW 11.6 L Plt Count 297 MPV 8.8 Neut % (Auto) 67.9 Lymph % (Auto) 19.8 Coke % (Auto) 9.8 Eos % (Auto) 1.6 Baso % (Auto) 0.6 Neut # (Auto) 5.2 Lymph # (Auto) 1.5 Coke # (Auto) 0.8 Eos # (Auto) 0.1 Baso # (Auto) 0.1 Nucleated RBC % (a uto) 0 Nucleated RBCs # 0.0 ESR PT 12.50 INR 0.90 D-Dimer 1.61 H Sodium Potassium Chloride Carbon Dioxide Anion Gap BUN Creatinine GFR Calculation Glucose Estimat Average Gl ucose Hemoglobin A1c Calcium Total Bilirubin AST ALT Alkaline Phosphata se Creatine Kinase Troponin I 6 Hour Troponin I Hi Sens Del Troponin T Baselin e Troponin T 120 Min [place] Delta Troponin T C-Reactive Protein Total Protein Albumin Globulin Lipase Procalcitonin Vitals: Last Vital Signs Temp 98.1 F 07/20/19 11:06 Pulse 66 07/20/19 11:06 Resp 15 07/20/19 11:06 BP 125/76 07/20/19 11:06 Pulse Ox 97 07/20/19 11:06 Discharge Plan Discharge Patient Disposition: Home, Self-Care Condition: Stable Prescriptions: New pantoprazole 40 mg Tablet,Delayed Release (Dr/Ec) 40 mg PO DAILY Qty: 30 RF: 0 ibuprofen 400 mg tablet 400 mg PO Q8H PRN (Reason: pain) Qty: 20 RF: 0 Continued Coreg 25 mg Tablet 25 mg PO BID RF: 0 losartan-hydrochlorothiazide 100-12.5 mg Tablet 1 tab PO DAILY RF: 0 Multiple Vitamins Tablet 1 tab PO DAILY RF: 0 Discharge Orders: Discharge Order (Routine); Ordered 07/20/19 Ordered By: Jerry Ureña Other Ambulatory Orders: Cardiac Stress Test Request (Routine) Timeframe: 1 Week Facility: [facility] - Location: Cardiac Diagnostic Laboratory Ordered By: Jerry Ureña CV echo complete* [id number] (Routine) Timeframe: 1 Week Facility: [facility] - Location: Radiology Ordered By: Jerry Ureña Referrals: Gayla Preciado FNP [Primary Care Provider] - 1-3 days Discharge Diet: Cardiac and Low Cholesterol Discharge Activity: Increase activity as tolerated and Limit activity as instructed Patient Instructions: Chest Pain (ED) Activity Restrictions/Additional Instructions: Return for any new or worsening symptoms. Follow-up with your primary care provider within 3 days. Continue home medications as prescribed. Stop smoking. Avoid alcohol due to fat infiltration of liver. Maintain low cholesterol diet due to same and biliary sludge. If respiratory symptoms persist, consider discussing with your primary care provider regarding referral for pulmonary function testing to assess for asthma. Avoid extreme overexertion, chopping wood, etc., until assessment is complete with echocardiogram and stress test. 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
--- NOTE | 2019-07-20 13:25 | PC.NURSE ---
DISCHARGE SUMMARY PATIENT IV DISCONTINUED. DISCHARGE INSTRUCTIONS WERE GIVEN TO PATIENT. ALL FOLLOW UP APPOINTMENTS WERE GIVEN TO PATIENT TO MAKE AND HOSPITAL WILL CALL TO SCHEDULE HIS OUTPATIENT TESTS. VITALS SIGNS STABLE AND ALERT AND ORIENTED. PATIENT STATED HIS FRIEND WOULD BE HERE TO PICK HIM UP.
== END 2019-07-20 13:00 | disposition home or self-care (01) ==
LOC: ER 20:26 → MEDSURG 22:11
PROVIDERS: Admitting Provider Family Medicine; Emergency Provider Family Medicine; Family Provider Nurse Practitioner; PCP Nurse Practitioner; Visit Provider Internal Medicine
DX: R07.89 Other chest pain (principal); I10 Essential (primary) hypertension; F17.210 Nicotine dependence, cigarettes, uncomplicated
CPT/HCPCS: 12345; 36415; 71046; 71275; 76700; 80053; 82550; 83036; 83690; 84145; 84484; 85025; 85378; 85610; 85651; 86140; 93005; 94664; 96361; 96372; 96374; 96375; 99283; 99285; G0378; J1650; J3490; J7030; J7611; Q9967

== ENCOUNTER 2019-08-20 10:49 | Emergency (ER) | payer OTHER, SELFPAY ==
[2019-08-20 10:58] VITALS: BP 161/104; PULSE 88; RESP 16; TEMP 36.6; O2SAT 94; BMI 39.5
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
[2019-08-20 11:16] LABS: Basophils % 0.5 %; Eosinophils # 0.1 10^3/uL (0.0-0.8); Eosinophils % 1.7 %; Hematocrit 47.6 % (42.0-52.0); Hemoglobin 16.1 g/dL (11.7-16.6); Lymphocytes # 1.5 10^3/uL (0.8-4.8); Lymphocytes % 26.4 %; Mean Corpuscular HGB Conc 33.8 g/dL (30.0-36.0); Mean Corpuscular Hemoglobin 30.7 pg (28.0-34.0); Mean Corpuscular Volume 90.8 fL (80-94); Mean Platelet Volume 8.9 fL (7.4-10.4); Monocytes # 0.5 10^3/uL (0.2-0.9); Monocytes % 9.4 %; Neutrophils # 3.6 10^3/uL (1.8-7.7); Neutrophils % 61.8 %; Nucleated Red Blood Cells % 0 %; Platelet Count 346 10^3/cmm (130-400); Red Blood Count 5.24 10^6/uL (4.1-5.3); Red Cell Distribution Width 11.3 % (12.1-15.1); White Blood Count 5.8 10^3/uL (4.0-10.0)
[2019-08-20 11:31] LABS: Alanine Aminotransferase 19 U/L (0-41); Albumin Level 4.5 g/dL (3.5-5.2); Alkaline Phosphatase 61 IU/L (40-130); Anion Gap 14.3 (5-19); Aspartate Amino Transferase 18 U/L (0-40); Blood Urea Nitrogen 13 mg/dL (6-20); Calcium 9.7 mg/dL (8.5-10.5); Carbon Dioxide 27 mmol/L (22-29); Chloride 102 mmol/L (98-107); Globulin 3.8 g/dL (1.3-4.6); Glomerular Filtration Rate 111.3 mL/min (90-130); Glucose 109 mg/dL (65-115); Osmolality Calculated 285 mOsm/kg (285-295); Potassium 4.3 mmol/L (3.5-5.1); Sodium 139 mmol/L (136-145); Total Bilirubin 0.6 mg/dL (0.15-1.2); Total Protein 8.3 g/dL (6.6-8.7)
[2019-08-20] MEDS: neomycin-poly-dex Op 5 mL Btl 2 DROP EYE-BOTH (11:55)
[2019-08-20 12:00] VITALS: PULSE 86; RESP 16; TEMP 36.8; O2SAT 98
[2019-08-20 12:10] LABS: HIV 1 & 2 Antibody Non-Reactive (Non-Reactiv); HIV 1 & 2 Antigen Non-Reactive (Non-Reactiv); Hepatitis A Antibody IgM. Non-Reactive (Nonreactive); Hepatitis B Core IgM Non-Reactive (Nonreactive); Hepatitis B Surface Antigen. Non-Reactive (Nonreactive); Hepatitis C Virus Antibody Non-Reactive (Nonreactive)
== END 2019-08-20 12:02 | disposition home or self-care (01) ==
LOC: ER 12:04
PROVIDERS: Emergency Provider Nurse Practitioner Family; Family Provider Nurse Practitioner
DX: Z77.21 Contact with and (suspected) exposure to potentially hazardous body fluids (principal); I10 Essential (primary) hypertension; Z87.891 Personal history of nicotine dependence
CPT/HCPCS: 12345; 36415; 80053; 80074; 85025; 87806; 99281; 99283

== ENCOUNTER 2019-08-21 10:41 | Outpatient (CLI) | payer OTHER, SELFPAY ==
--- NOTE | 2019-08-21 | USCV_ITS ---
Juan Royal Age: 34 Gender: M : 1985 Exam Date: 08/21/2019 11:35 Ordering Phys: Jerry Ureña MD Technologist: YOANA RUSH Exam Location: [facility] [place] Indication: CHRONIC HTN. PRE-SYNCOPE. DYSPNEA ON EXERTION. BP: / HR: 95 Rhythm: Sinus Technical Quality: Technically difficult study MEASUREMENTS (Male / Female) Normal Values 2D ECHO LV Diastolic Diameter PLAX 3.4 cm 4.2 - 5.9 / 3.9 - 5.3 cm LV Systolic Diameter PLAX 1.9 cm IVS Diastolic Thickness 1.2 cm 0.6 - 1.0 / 0.6 - 0.9 cm IVS Systolic Thickness 1.8 cm LVPW Diastolic Thickness 1.1 cm 0.6 - 1.0 / 0.6 - 0.9 cm LVPW Systolic Thickness 2.1 cm LVOT Diameter 2.3 cm LV Ejection Fraction 2D Teich 77.4 % LV Ejection Fraction MOD 2C 73.8 % LV Ejection Fraction 2C AL 73.6 % LA Diameter 3.2 cm LA Width 2.7 cm LA Height 4.8 cm RA Width 2.7 cm RA Height 4.4 cm M-MODE LV Diastolic Diameter MM 4.4 cm 4.2 - 5.9 / 3.9 - 5.3 cm LV Systolic Diameter MM 2.2 cm LV Ejection Fraction MM Teich 82.1 % IVS Diastolic Thickness MM 0.7 cm 0.6 - 1.0 / 0.6 - 0.9 cm IVS Systolic Thickness MM 1.6 cm LVPW Diastolic Thickness MM 0.9 cm 0.6 - 1.0 / 0.6 - 0.9 cm LVPW Systolic Thickness MM 1.8 cm Aortic Annulus Diameter 3.6 cm LA Ao Ratio MM 0.9 MV E Point Septal Separation 0.7 cm DOPPLER AV Peak Velocity 93.0 cm/s LVOT Peak Velocity 119.0 cm/s AV Area Cont Eq vti 5.6 cm squared AV Area Cont Eq pk 5.2 cm squared MV Peak Velocity 85.0 cm/s MV Area PHT 6.3 cm squared Mitral E to A Ratio 1.0 MV E' Velocity 6.0 cm/s Mitral E to MV E' Ratio 9.6 Mitral E to LV E' Lateral Ratio 13.4 Mitral E to LV E' Septal Ratio 7.5 PV Peak Velocity 103.0 cm/s RV Acceleration Time 0.1 s FINDINGS Left Ventricle Normal left ventricular size and systolic function, EF 71 %. No regional wall motion abnormalities. Right Ventricle The right ventricle is normal in size and function. Right Atrium The right atrium is normal in size. Left Atrium The left atrium is normal in size. Mitral Valve No gross abnormalities noted Aortic Valve No gross abnormalities noted Tricuspid Valve No gross abnormalities noted Pulmonic Valve Pulmonic valve not well visualized. Pericardium Normal pericardium without effusion. Aorta Normal ascending aorta dimension. CONCLUSIONS Normal left ventricular size and systolic function, EF 71 %. No regional wall motion abnormalities. Normal chamber sizes. No significant stenotic or regurgitant lesions. There is no pericardial effusion. There are no intracardiac masses. No previous study is available for comparison. Dr Jaya Ayala MD FACC (Electronically Signed) Final Date: 21 August 2019 15:06 S
[2019-08-21 10:56] VITALS: BMI 40.3
[2019-08-21 12:00] VITALS: BP 141/90; PULSE 109
--- NOTE | 2019-08-21 12:15 | ECG_ITS ---
NAME OF STUDY: TREADMILL STRESS TEST INDICATION: [Chest Pain, ] Data At baseline heart rate was noted to be 95 bpm. Baseline blood pressure noted to be 148/100 Patient exercised for on a 8 min 13 sec min on standard [place] protocol. Maximum Heart rate achieved was 172 which was 91% of 187. Then maximum blood pressure achieved was 218/110 mmHg. Max METS 10.2 Reason for, ending this test was achieving target heart rate. Patient did not have any symptoms during this procedure Electrocardiogram Baseline normal sinus rhythm with no ST changes. Exercise EKG at peak exercise reveals normal sinus tachycardia with nonspecific ST changes . No significant cardiac arrhythmias noted. Conclusions 1. This cardiac stress test is negative for cardiac ischemia 2. Normal Heart rate response with increased blood pressure response 3. Adequate exercise capacity Electronically Signed On 08-22-2019 8:31:07 CDT by Tate Joy [email or web address]
== END 2019-08-21 10:42 | disposition home or self-care (01) ==
LOC: CDL 10:46
PROVIDERS: Family Provider Nurse Practitioner; PCP Nurse Practitioner Family; Visit Provider Internal Medicine
DX: R07.9 Chest pain, unspecified (principal); I10 Essential (primary) hypertension; R55 Syncope and collapse; R06.09 Other forms of dyspnea
CPT/HCPCS: 93017; 93306

== ENCOUNTER 2020-03-28 08:43 | Outpatient (CLI) | payer OTHER, SELFPAY ==
[2020-03-28 09:35] LABS: Anion Gap 12.3 (5-19); Blood Urea Nitrogen 13 mg/dL (6-20); Carbon Dioxide 29 mmol/L (22-29); Chloride 98 mmol/L (98-107); Glomerular Filtration Rate 97.2 mL/min (90-130); Glucose 102 mg/dL (65-115); Osmolality Calculated 280 mOsm/kg (285-295); Potassium 4.3 mmol/L (3.5-5.1); Sodium 135 mmol/L (136-145)
== END 2020-03-28 08:44 | disposition home or self-care (01) ==
LOC: LAB 08:47
PROVIDERS: PCP Family Medicine; Visit Provider Family Medicine
DX: I10 Essential (primary) hypertension (principal); R53.83 Other fatigue; Z13.29 Encounter for screening for other suspected endocrine disorder; Z68.42 Body mass index [BMI] 45.0-49.9, adult
CPT/HCPCS: 36415; 80048; 84443

== ENCOUNTER 2020-06-24 09:10 | Outpatient (CLI) | payer OTHER, SELFPAY ==
--- NOTE | 2020-06-24 09:30 | MR_ITS ---
WS: [id number] MRI LUMBAR SPINE NONCONTRAST HISTORY: Low back pain. COMPARISON: Thoracic MRI 02/17/2016. TECHNIQUE: Sagittal and axial multisequence imaging is submitted. Shallow disc protrusion at T5-6. Additional tiny central disc protrusion at T10-11. Very minimal straightening of the normal lumbar lordosis. Thecal sac is small caliber throughout the lumbar spine which is probably congenital. No high-grade stenosis. Disc spaces are well preserved. Hemangioma at L2. There are several small Schmorl's nodes at multiple levels in the lower thoracic and lumbar spine. No compression fractures or acute marrow edema. Conus terminates normally at L1. L1-L2: Shallow central disc protrusion with annular fissure. Minimal deformity the ventral thecal sac . No high-grade stenosis. L2-L3: Mild narrowing thecal sac and facet joint arthritis. No high-grade stenosis. L3-L4: Continued narrowing of the thecal sac with mild facet and ligamentum flavum hypertrophy. No fo tyler disc protrusions. Mild bilateral foraminal stenosis. L4-L5: Mild annular disc bulging with a small thecal sac. Mild facet joint arthritis. LEFT facet join t cyst measures 6 mm and projects posteriorly. Moderate bilateral foraminal stenosis. L5-S1: No significant stenosis. MR/MR lumbar spine wo con* [id number] IMPRESSION: 1. No high-grade severe central stenosis or large disc protrusions. 2. Small thecal sac is probably congenital or due to short pedicles. Thecal sa c is mildly narrowed throughout, most significant from L2-3 to L4-5. 3. Moderate bilateral foraminal stenosis at L4-5 and mild at L3-4. 4. Shallow central disc protrusion at L1-2.
== END 2020-06-24 09:11 | disposition home or self-care (01) ==
LOC: RADSHAW 09:14
PROVIDERS: PCP Family Medicine; Visit Provider Nurse Practitioner
DX: M51.26 Other intervertebral disc displacement, lumbar region (principal); M48.061 Spinal stenosis, lumbar region without neurogenic claudication
CPT/HCPCS: 72148

== ENCOUNTER 2020-08-23 10:22 | Outpatient (CLI) | payer SELFPAY ==
[2020-08-23 11:18] LABS: Basophils # 0.1 10^3/uL (0.0-0.1); Basophils % 0.7 %; Eosinophils # 0.2 10^3/uL (0.0-0.8); Eosinophils % 2.8 %; Hematocrit 43.7 % (42.0-52.0); Hemoglobin 14.6 g/dL (11.7-16.6); Lymphocytes # 1.7 10^3/uL (0.8-4.8); Lymphocytes % 24.9 %; Mean Corpuscular HGB Conc 33.4 g/dL (30.0-36.0); Mean Corpuscular Hemoglobin 31.5 pg (28.0-34.0); Mean Corpuscular Volume 94.2 fL (80-94); Mean Platelet Volume 9.6 fL (7.4-10.4); Monocytes # 0.6 10^3/uL (0.2-0.9); Monocytes % 8.3 %; Neutrophils # 4.26 10^3/uL (1.8-7.7); Nucleated Red Blood Cells % 0 %; Platelet Count 318 10^3/cmm (130-400); Red Blood Count 4.64 10^6/uL (4.1-5.3); Red Cell Distribution Width 11.8 % (12.1-15.1); White Blood Count 6.8 10^3/uL (4.0-10.0)
[2020-08-23 11:39] LABS: Estmated Average Glucose 100; Hemoglobin A1C 5.1 % (4.0-6.0)
[2020-08-23 11:44] LABS: Alanine Aminotransferase 17 U/L (0-41); Albumin Level 4.4 g/dL (3.5-5.2); Alkaline Phosphatase 67 IU/L (40-130); Anion Gap 13.2 (5-19); Aspartate Amino Transferase 14 U/L (0-40); Blood Urea Nitrogen 15 mg/dL (6-20); Calcium 9.5 mg/dL (8.5-10.5); Carbon Dioxide 27 mmol/L (22-29); Chloride 98 mmol/L (98-107); Chol HDL Ratio 5.39 mg/dL (1.0-5.00); Cholesterol 205 mg/dL (0-200); Globulin 3.1 g/dL (1.3-4.6); Glomerular Filtration Rate 110.7 mL/min (90-130); Glucose 101 mg/dL (65-115); HDL Cholesterol 38 mg/dL (60-100); LDL Cholesterol Calculated 107 mg/dL (50-129); LDL HDL Ratio 2.82 RATIO (0.00-3.22); Osmolality Calculated 279 mOsm/kg (285-295); Potassium 4.2 mmol/L (3.5-5.1); Sodium 134 mmol/L (136-145); Total Bilirubin 0.2 mg/dL (0.15-1.2); Total Protein 7.5 g/dL (6.6-8.7); Triglycerides 299 mg/dL (0-150)
== END 2020-08-23 10:23 | disposition home or self-care (01) ==
LOC: LAB 10:24
PROVIDERS: PCP Family Medicine; Visit Provider Dermatology
DX: Z01.89 Encounter for other specified special examinations (principal)
CPT/HCPCS: 80053; 80061; 83036; 85025

== ENCOUNTER 2020-12-17 19:38 | Emergency (ER) | payer OTHER, SELFPAY ==
--- NOTE | 2020-12-17 20:08 | XRR_ITS ---
PROCEDURE INFORMATION: Exam: XR Right Wrist Exam date and time: 12/17/2020 8:08 PM Age: 35 years old Clinical indication: Injury or trauma; Fall; Blunt trauma (contusions or hematomas); Prior surgery; Surgery date: 6+ months; Surgery type: Previous surgery on right wrist; Additional info: Fall, injury TECHNIQUE: Imaging protocol: XR Right wrist. Views: 3 or more views. COMPARISON: No relevant prior studies available. FINDINGS: Bones/joints: There has been previous fracture of the right scaphoid. There is sclerosis of the distal fracture fragment consistent with osteonecrosis. There is joint space narrowing and osteophyte formation at the right radiocarpal joint. There is no evidence for acute fracture or malalignment. Soft tissues: Normal. XR/XR wrist RT min 3V* [id number] IMPRESSION: There is no evidence for acute fracture or malalignment.
[2020-12-17 20:19] VITALS: BP 146/82; PULSE 88; RESP 16; TEMP 36.4; O2SAT 99; BMI 43.0
[2020-12-17] MEDS: HYDROcodone-acetaminophen 5-325 mg Tablet 1 TAB PO (20:28)
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
[2020-12-17 21:41] VITALS: BP 126/57; PULSE 97; RESP 20; O2SAT 96
--- NOTE | 2020-12-19 08:45 | DCPLANNER ---
manager culinary had message to schedule a follow up appointment for patient with ortho for wrist pain. manager culinary called the ortho clinic, spoke with Татьяна, gave clinic patients information. manager culinary was told that patients information will be printed and reviewed. Clinic will call patient with appointment information.
--- NOTE | 2020-12-20 12:37 | DCPLANNER ---
Patient had a follow up appointment scheduled for 12.19.[address] Hinton at [facility] - patient did attend appointment.
== END 2020-12-17 21:44 | disposition home or self-care (01) ==
PROVIDERS: Emergency Provider Nurse Practitioner Family; PCP Family Medicine
DX: M25.531 Pain in right wrist (principal); I10 Essential (primary) hypertension; E78.2 Mixed hyperlipidemia; F17.210 Nicotine dependence, cigarettes, uncomplicated
CPT/HCPCS: 29125; 73110; 99283

== ENCOUNTER 2021-02-21 09:23 | Outpatient (CLI) | payer SELFPAY ==
[2021-02-21 10:24] LABS: HF Add Manual Diff No
[2021-02-21 10:47] LABS: Basophils % 0.6 %; Eosinophils # 0.2 10^3/uL (0.0-0.8); Eosinophils % 2.3 %; Hematocrit 44.8 % (42.0-52.0); Hemoglobin 15.1 g/dL (11.7-16.6); Lymphocytes # 1.6 10^3/uL (0.8-4.8); Lymphocytes % 23.7 %; Mean Corpuscular HGB Conc 33.7 g/dL (30.0-36.0); Mean Corpuscular Hemoglobin 31.9 pg (28.0-34.0); Mean Corpuscular Volume 94.7 fl (80-94); Monocytes # 0.6 10^3/uL (0.2-0.9); Monocytes % 9.3 %; Neutrophils # 4.39 10^3/uL (1.8-7.7); Nucleated Red Blood Cells % 0 %; Platelet Count 336 10^3/cmm (130-400); Red Blood Count 4.73 10^6/uL (4.1-5.3); Red Cell Distribution Width 11.7 % (12.1-15.1); White Blood Count 6.9 10^3/uL (4.0-10.0)
[2021-02-21 11:15] LABS: Alanine Aminotransferase 19 U/L (0-41); Albumin Level 4.7 g/dL (3.5-5.2); Alkaline Phosphatase 76 IU/L (40-130); Anion Gap 14.6 (5-19); Blood Urea Nitrogen 12 mg/dL (6-20); Calcium 9.8 mg/dL (8.5-10.5); Carbon Dioxide 28 mmol/L (22-29); Chloride 100 mmol/L (98-107); Chol HDL Ratio 5.59 mg/dL (1.0-5.00); Cholesterol 207 mg/dL (0-200); Globulin 3.2 g/dL (1.3-4.6); Glomerular Filtration Rate 96.6 mL/min (90-130); Glucose 94 mg/dL (65-115); HDL Cholesterol 37 mg/dL (60-100); LDL Cholesterol Calculated 110 mg/dL (50-129); LDL HDL Ratio 2.97 RATIO (0.00-3.22); Osmolality Calculated 286 mOsm/kg (285-295); Potassium 4.6 mmol/L (3.5-5.1); Sodium 138 mmol/L (136-145); Total Bilirubin 0.5 mg/dL (0.15-1.2); Total Protein 7.9 g/dL (6.6-8.7); Triglycerides 299 mg/dL (0-150)
[2021-02-21 11:16] LABS: Aspartate Amino Transferase 17 U/L (0-40)
[2021-02-21 11:27] LABS: Estmated Average Glucose 100; Hemoglobin A1C 5.1 % (4.0-6.0)
== END 2021-02-21 09:24 | disposition home or self-care (01) ==
LOC: LAB 09:24
PROVIDERS: PCP Family Medicine; Visit Provider Dermatology
DX: Z01.89 Encounter for other specified special examinations (principal)

== ENCOUNTER → 2021-05-30 09:52 | Outpatient (BNVA) | payer OTHER, SELFPAY | PROVIDERS: PCP Family Medicine; Visit Provider Nurse Practitioner Family | DX: J02.0 Streptococcal pharyngitis (principal) | CPT/HCPCS: 87880 ==

== ENCOUNTER 2021-06-12 19:09 | Emergency (ER) | payer OTHER, SELFPAY ==
--- NOTE | 2021-06-12 19:37 | W.ED.CHESTPA ---
HPI - Chest Pain General: Chief Complaint: Chest Pain Stated Complaint: chest pain Time Seen by Provider: 06/12/21 19:37 History of Present Illness: HPI narrative: Mr. Royal is a 36-year-old gentleman with significant past medical history of hypertension, hyperlipidemia, obesity presents emergency department due to chest discomfort associated with tingling. He reports being at his baseline health center approximately 6 PM had subacute onset while sitting of tingling in bilateral upper and lower extremities in the distal portion as well as right anterior chest pressure. Mild associated unwell feeling and lightheadedness or off-balance feeling. Symptoms have subsequently improved. At maximal intensity intensity was moderate to severe. Denies similar episodes in the past. Does have a history of recent illness with strep pharyngitis however no other specific changes in health, exacerbating, relieving factors identified. MD complaint: chest discomfort Onset (ago): hour(s) Timing of current episode: constant and now resolved Prior episodes: No Onset: during rest Pain location: right chest Pain radiation: other Quality: tightness Relieving factors: nothing Exacerbating factors: nothing Context: recent illness Associated symptoms: Reports nausea and other (Tingling in hands and feet without of their neurologic symptoms.) Treatment prior to arrival: aspirin Review of Systems General: Reports: 10 or more systems reviewed and unremarkable except in HPI and below GI: Reports: nausea PFSH ED PFSH: Medical History Acne Hypertension Mixed hyperlipidemia Nicotine abuse Surgical History S/P right knee arthroscopy Family History (Updated 06/12/21 @ 20:23 by Andrew Pelletier MD) Denies family history of Family history of premature coronary artery disease Social History Smoking and tobacco status: never smoked Quit status (tobacco): not considering quitting Alcohol intake: current Alcohol intake frequency: holidays/special occasions only Desire information about substance/drug rehabilitation?: No History of recent travel: No Current gender identity: Male Physical Exam Const: COMMON NORMALS: alert GENERAL APPEARANCE: cooperative and well developed HENMT: COMMON NORMALS: normocephalic and atraumatic HEAD & SCALP: normocephalic and atraumatic THROAT: posterior oropharynx normal Eye: COMMON NORMALS: conjunctivae normal CONJUNCTIVA: Yes conjunctivae normal SCLERA: sclerae normal Neck/C-Spine: COMMON NORMALS: supple GENERAL: Yes trachea midline Resp: COMMON NORMALS: normal respiratory effort EFFORT & INSPECTION: Yes able to speak in complete sentences Cardio: COMMON NORMALS: regular rate and regular rhythm RATE: regular rate RHYTHM: regular rhythm GI: COMMON NORMALS: Soft to palpation PALPATION: Yes Soft to palpation and No Tenderness to palpation present (GI) PERCUSSION: normal to percussion Extremity: GENERAL: Yes normal exam except as noted and No edema Neuro: COMMON NORMALS: CN's II-XII intact bilaterally, moves all extremities, no focal motor deficits and no sensory deficits noted SENSORIUM/ORIENTATION: Yes alert and No Orientation impaired Psych: COMMON NORMALS: mental status grossly normal and Normal thought process present THOUGHT PROCESS: Normal thought process present Skin: NARRATIVE SKIN EXAM: Contact dermatitis without discrete vesicles noted in right axilla Course ED course: - Patient was seen and evaluated by me at bedside - Patient placed on cardiac monitors, IV access obtained - Initial evaluation notable for exam as above - symptom treatment ordered - Labs notable for no leukocytosis. Mild dehydration. Negative trop and procal. - Imaging notable for no lobar consolidation. Discussed additional imaging such as head CT however, given normal neurological exam and risk of radiation from CT, patient comfortable deferring at this time in favor of observation with strict return precautions - Upon serial reexamination after treatment the patient was mildly improved - Based on patient history, evaluation, labs, and imaging as interpreted the most likely cause of the patient's condition is unspecified cause of chest pain - The results of ED evaluation were discussed with the patient including prescriptions and/or symptomatic cares (if applicable) including appropriate and responsible use, follow-up plan, and return precautions. The patient verbalized understanding and felt safe for discharge. - Patient discharged in satisfactory condition. Note: Click bubbles or prepopulated braun in note writing are used for assistance with data collection and billing and are inherently more limited than narrative and other text portions of this note. Please use narrative for additional clinical history and defer to narrative/free test for any case of contradictory information. If information appears in only free text or click bubble it should be considered present or absent as reported. Please contact note program writer for clarifications of clinical information or contradictory information. MDM is a brief summary; contradictory or erroneous seeming information should be clarified, and full note should be referred to in cases of contradiction or lack of clarity. Vital Signs: Vital signs: Vital Signs Temperature 97.9 F 06/12/21 22:30 Pulse Rate 76 06/12/21 22:30 Respiratory Rate 18 06/12/21 22:30 Blood Pressure 127/84 06/12/21 22:30 Pulse Oximetry 98 06/12/21 22:30 MDM - Chest Pain MDM Narrative: Medical decision making narrative: 36 yo M presented with chest pain and generalized symptoms. Negative eval. Low risk for chest pain. Discharged for PCP followup. Medical Records: Attestation: I reviewed the patient's medical records. Lab Data: Attestation: I reviewed the patient's lab results. Labs: Lab Results 06/12/21 06/12/21 06/12/21 19:41 19:41 19:41 WBC 10.4 10^3/uL H 10 ^3/uL (4.0-10.0) RBC 4.62 10^6/uL 10^6 /uL (4.1-5.3) Hgb 14.1 g/dL g/dL (11.7-16.6) Hct 42.4 % % (42.0-52.0) MCV 91.8 fl fl (80-94) MCH 30.5 pg pg (28.0-34.0) MCHC 33.3 g/dL g/dL (30.0-36.0) RDW 11.3 % L % (12.1-15.1) Plt Count 369 10^3/cmm 10^3 /cmm (130-400) MPV 9.3 fL fL (7.4-10.4) Neut % (Auto) 68.6 % % Lymph % (Auto) 21.2 % % [place] % (Auto) 8.4 % % Eos % (Auto) 1.1 % % Baso % (Auto) 0.5 % % Neut # (Auto) 7.12 10^3/uL 10^3 /uL (1.8-7.7) Lymph # (Auto) 2.2 10^3/uL 10^3/ uL (0.8-4.8) [place] # (Auto) 0.9 10^3/uL 10^3/ uL (0.2-0.9) Eos # (Auto) 0.1 10^3/uL 10^3/ uL (0.0-0.8) Baso # (Auto) 0.1 10^3/uL 10^3/ uL (0.0-0.1) Nucleated RBC % (a uto) 0 % % Nucleated RBCs # 0.0 /100WBC /100W BC Sodium 140 mmol/L mmol/L (136-145) Potassium 4.1 mmol/L mmol/L (3.5-5.1) Chloride 103 mmol/L mmol/L (98-107) Carbon Dioxide 20 mmol/L L mmol/ L (22-29) Anion Gap 21.1 H (5-19) BUN 14 mg/dL mg/dL (6-20) Creatinine 0.8 mg/dL mg/dL (0.7-1.2) GFR Calculation 110.0 mL/min mL/m in (90-130) Glucose 88 mg/dL mg/dL (65-115) Calculated Osmolal ity 290 mOsm/kg mOsm/ kg (285-295) Calcium 9.6 mg/dL mg/dL (8.5-10.5) Total Bilirubin 0.2 mg/dL mg/dL (0.15-1.2) AST 23 U/L U/L (0-40) ALT 24 U/L U/L (0-41) Alkaline Phosphata se 59 IU/L IU/L (40-130) Troponin T Baselin e 6 ng/L ng/L (0-15) Troponin T 120 Min [place] Troponin T NT-Pro-B Natriuret Pep 65 pg/mL pg/mL (0-125) Total Protein 6.7 g/dL g/dL (6.6-8.7) Albumin 4.2 g/dL g/dL (3.5-5.2) Globulin 2.5 g/dL g/dL (1.3-4.6) Lipase 26 U/L U/L (13-60) Procalcitonin 0.04 ng/mL ng/mL (0-0.5) SARS-CoV-2 Ag (Rap id) 06/12/21 06/12/21 20:45 21:35 WBC RBC Hgb Hct MCV MCH MCHC RDW Plt Count MPV Neut % (Auto) Lymph % (Auto) [place] % (Auto) Eos % (Auto) Baso % (Auto) Neut # (Auto) Lymph # (Auto) [place] # (Auto) Eos # (Auto) Baso # (Auto) Nucleated RBC % (a uto) Nucleated RBCs # Sodium Potassium Chloride Carbon Dioxide Anion Gap BUN Creatinine GFR Calculation Glucose Calculated Osmolal ity Calcium Total Bilirubin AST ALT Alkaline Phosphata se Troponin T Baselin e Troponin T 120 Min [place] 6.00 ng/L ng/L (0-15) Delta Troponin T 0 ABS# ABS# (0-10) NT-Pro-B Natriuret Pep Total Protein Albumin Globulin Lipase Procalcitonin SARS-CoV-2 Ag (Rap id) Negative (Negative) EKG Data^: EKG 1: Attestation: I personally reviewed and interpreted this EKG as follows: EKG interpretation date: 06/12/21 EKG interpretation time: 20:41 Interpretation: 12 lead shows regular rhythm at rate of 85 SC 170, QRS 101, QTc 385 borderline axis Interpretation: sinus rhythm. Non specific abnormalities. EKG 2: Attestation: I personally reviewed and interpreted this EKG as follows: EKG interpretation date: 06/12/21 EKG interpretation time: 19:49 Interpretation: 12 Lead shows regular rhythm at rate of 76 SC 166, QRS 108, QTc 392 borderline axis Interpretation: sinus rhythm. Non specific abnormalities. EKG 3: Attestation: I personally reviewed and interpreted this EKG as follows: EKG interpretation date: 06/12/21 EKG interpretation time: 22:09 Interpretation: 12 lead shows regular rhytm at rate of 62 SC 162, QRS 113, QTc 394 Borderline axis Interpretation: sinus rhythm. Non specific abnormalities. Discharge Plan Discharge Patient Disposition: Home Clinical Impression: Chest pain, Paresthesia Condition: Stable Prescriptions: No Action ketoconazole 2 % shampoo 1 applic topical .WEEKLY Qty: 120 RF: 5 losartan-hydrochlorothiazide 100-25 mg tablet 0.5 tab PO BID 90 Days Qty: 90 RF: 1 carvedilol phosphate 80 mg capsule, ER multiphase 24 hr 80 mg PO QAM 90 Days Qty: 90 RF: 1 varenicline 0.5 mg tablet 0.5 mg PO BID PRN (Reason: quiting smoking) 30 Days Qty: 60 RF: 0 cephalexin 500 mg capsule 500 mg PO BID 10 Days Qty: 20 RF: 0 Multiple Vitamins Tablet 1 tab PO DAILY RF: 0 Discharge Orders: Discharge ED (Routine); Ordered 06/12/21 Ordered By: Andrew Pelletier Referrals: Allison Sanchez MD [Primary Care Provider] - Discharge Diet: Usual diet Discharge Activity: Resume usual activity Patient Instructions: Chest Pain (ED), Dehydration (ED), Paresthesia (ED) Activity Restrictions/Additional Instructions: Thank you for visiting the emergency department. You were seen and evaluated for chest pain and paresthesias. The exact cause of your symptoms is unclear. Based on risk factors you are low risk for cardiac cause of chest pain. Please follow-up with your primary care provider, they may recommend additional testing in the outpatient setting. Return to the emergency department for worsening symptoms, chest pain, shortness of breath, weakness or numbness of any part of the body, or anything else that you are concerned about a feel needs emergency department evaluation. 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
[2021-06-12 19:40] VITALS: BP 153/92; PULSE 80; RESP 16; TEMP 36.2; O2SAT 96; BMI 41.5
--- NOTE | 2021-06-12 19:49 | XRR_ITS ---
PROCEDURE INFORMATION: Exam: XR Chest Exam date and time: 06/12/2021 7:49 PM Age: 36 years old Clinical indication: Pain; Angina pectoris; Additional info: Chest pain, high blood pressure, numbness and tingling in arms and hands TECHNIQUE: Imaging protocol: XR of the chest. Views: 1 view. COMPARISON: CR XR chest 2V* [id number] 07/19/2019 6:19 PM FINDINGS: Lungs: No consolidation. Pleural spaces: No pleural effusion. No pneumothorax. Heart/Mediastinum: No cardiomegaly. Bones/joints: Unremarkable. XR/XR chest 1V portable [id number] IMPRESSION: 1. No acute abnormality demonstrated. 2. There is no interval change from the prior examination.
--- NOTE | 2021-06-12 19:50 | ECG_ITS ---
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 Measurements Intervals [place] Rate: 62 P: 26 NM: 162 QRS: -16 QRSD: 113 T: 8 QT: 389 QTc: 396 Interpretive Statements SINUS RHYTHM LOW QRS VOLTAGE IN PRECORDIAL LEADS [QRS DEFLECTION < 1.0 mV IN CHEST LEADS] INCOMPLETE RIGHT BUNDLE BRANCH BLOCK [90+ ms QRS DURATION, TERMINAL R IN V1/V2, 40+ ms S IN I/aVL/V4/V5/V6] Compared to ECG 06/12/2021 19:43:58 Low QRS voltage now present Myocardial infarct finding no longer present Electronically Signed On 06-14-2021 19:51:[address] ENGINEER by Jaya Ayala M.D. [id number]
[2021-06-12 19:57] LABS: Basophils # 0.1 10^3/uL (0.0-0.1); Basophils % 0.5 %; Eosinophils # 0.1 10^3/uL (0.0-0.8); Eosinophils % 1.1 %; Hematocrit 42.4 % (42.0-52.0); Hemoglobin 14.1 g/dL (11.7-16.6); Lymphocytes # 2.2 10^3/uL (0.8-4.8); Lymphocytes % 21.2 %; Mean Corpuscular HGB Conc 33.3 g/dL (30.0-36.0); Mean Corpuscular Hemoglobin 30.5 pg (28.0-34.0); Mean Corpuscular Volume 91.8 fl (80-94); Mean Platelet Volume 9.3 fL (7.4-10.4); Monocytes # 0.9 10^3/uL (0.2-0.9); Monocytes % 8.4 %; Neutrophils # 7.12 10^3/uL (1.8-7.7); Neutrophils % 68.6 %; Nucleated Red Blood Cells % 0 %; Platelet Count 369 10^3/cmm (130-400); Red Blood Count 4.62 10^6/uL (4.1-5.3); Red Cell Distribution Width 11.3 % (12.1-15.1); White Blood Count 10.4 10^3/uL (4.0-10.0)
[2021-06-12 20:12] LABS: Troponin(5th) Baseline 6 ng/L (0-15)
[2021-06-12 20:22] LABS: NT Pro B Type Natriuretic Pept 65 pg/mL (0-125); Procalcitonin 0.04 ng/mL (0-0.5)
[2021-06-12 20:33] LABS: Alanine Aminotransferase 24 U/L (0-41); Albumin Level 4.2 g/dL (3.5-5.2); Alkaline Phosphatase 59 IU/L (40-130); Anion Gap 21.1 (5-19); Aspartate Amino Transferase 23 U/L (0-40); Blood Urea Nitrogen 14 mg/dL (6-20); Calcium 9.6 mg/dL (8.5-10.5); Carbon Dioxide 20 mmol/L (22-29); Chloride 103 mmol/L (98-107); Globulin 2.5 g/dL (1.3-4.6); Glucose 88 mg/dL (65-115); Lipase 26 U/L (13-60); Osmolality Calculated 290 mOsm/kg (285-295); Potassium 4.1 mmol/L (3.5-5.1); Sodium 140 mmol/L (136-145); Total Bilirubin 0.2 mg/dL (0.15-1.2); Total Protein 6.7 g/dL (6.6-8.7)
[2021-06-12 21:07] VITALS: BP 133/77; PULSE 90; RESP 18; O2SAT 95
[2021-06-12] MEDS: sodium chloride 0.9% 1,000 ML 999 ML IV (21:07)
[2021-06-12 21:17] LABS: SARS Covid-2 Antigen Negative (Negative)
--- NOTE | 2021-06-12 21:50 | ECG_ITS ---
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 Measurements Intervals [place] Rate: 76 P: 26 MI: 166 QRS: -16 QRSD: 108 T: 26 QT: 362 QTc: 408 Interpretive Statements SINUS RHYTHM INCOMPLETE RIGHT BUNDLE BRANCH BLOCK [90+ ms QRS DURATION, TERMINAL R IN V1/V2, 40+ ms S IN I/aVL/V4/V5/V6] POSSIBLE ANTERIOR MYOCARDIAL INFARCTION , PROBABLY OLD [30 ms Q WAVE IN V3/V4, OR R < 0.2 mV IN V4] Compared to ECG 07/20/2019 00:31:14 Incomplete right bundle-branch block now present Myocardial infarct finding now present Electronically Signed On 06-13-2021 5:11:59 AFTER SCHOOL TEACHER by Latia Guo M.D. [email or web address]
[2021-06-12 21:55] LABS: Troponin 5 2HR Delta 0 ABS# (0-10)
[2021-06-12 22:25] VITALS: BP 127/84; PULSE 76; RESP 16; TEMP 36.6; O2SAT 98
[2021-06-12 22:30] VITALS: BP 127/84; PULSE 76; RESP 18; TEMP 36.6; O2SAT 98
== END 2021-06-12 22:31 | disposition home or self-care (01) ==
PROVIDERS: Emergency Provider Emergency Medicine; PCP Family Medicine
DX: R07.9 Chest pain, unspecified (principal); R20.2 Paresthesia of skin; I10 Essential (primary) hypertension; E78.2 Mixed hyperlipidemia; Z20.822 Contact with and (suspected) exposure to COVID-19
CPT/HCPCS: 71045; 80053; 83690; 83880; 84145; 84484; 85025; 87426; 93005; 96360; 99284; J7030